=== PATIENT | male | born 1975 | race Hispanic/Latino ===

== ENCOUNTER 2019-04-18 03:11 | Emergency (ER) | payer SELFPAY ==
[~2019-04-18] VITALS: Ht 177.8 cm; Wt 90.0 kg
[2019-04-18] MEDS ORDERED: MAGNESIUM SULF 1GRAM/DEXTROSE 100 ML IV ONE ×2 (03:45)
[2019-04-18] MEDS ORDERED: METHYLPREDNISOLONE SOD SUCC 125 MG/2ML VIAL IV ONE (03:45)
[2019-04-18] MEDS ORDERED: ALBUTEROL/IPRATROPIUM 3 ML NEB NEB ONE ×2 (03:45)
[2019-04-18] MEDS ORDERED: ALBUTEROL/IPRATROPIUM 3 ML NEB ONE (03:45)
[2019-04-18] MEDS ORDERED: ALBUTEROL/IPRATROPIUM 3 ML NEB INH ONE (03:45)
[2019-04-18 03:53] LABS: BASOPHILS % 0.5 % (0.0-1.0); EOSINOPHILS # (AUTO) 0.8 (0.0-0.4); EOSINOPHILS % 9.6 % (0.0-6.0); HEMATOCRIT 43.4 % (38.2-49.6); HEMOGLOBIN 14.2 g/dL (14.0-18.0); LYMPHOCYTES # (AUTO) 3.7 (1.0-3.2); LYMPHOCYTES % 45.8 % (18.0-39.1); MEAN CORPUSCULAR HEMOGLOBIN 29.6 pg (28-32); MEAN CORPUSCULAR HGB CONC 32.7 g/dL (31-35); MEAN CORPUSCULAR VOLUME 90.6 fL (81-99); MONOCYTES # (AUTO) 0.8 (0.2-0.8); MONOCYTES % 10.3 % (4.4-11.3); NEUTROPHILS # (AUTO) 2.7 (2.1-6.9); NEUTROPHILS % 33.7 % (38.7-80.0); PLATELET COUNT 245 x10e3/uL (140-360); RED BLOOD COUNT 4.79 x10e6/uL (4.3-5.7); RED CELL DISTRIBUTION WIDTH 13.2 % (11.7-14.4)
[2019-04-18 04:20] LABS: ALANINE AMINOTRANSFERASE 48 IU/L (0-55); ALBUMIN 4.4 g/dL (3.5-5.0); ALBUMIN/GLOBULIN RATIO 1.6 (0.8-2.0); ALKALINE PHOSPHATASE 54 IU/L (40-150); ANION GAP 16.6 mmol/L (8-16); BLOOD UREA NITROGEN 16 mg/dL (7-26); BUN/CREATININE RATIO 18 (6-25); CALCIUM 8.9 mg/dL (8.4-10.2); CARBON DIOXIDE 24 mmol/L (22-29); CHLORIDE 107 mmol/L (98-107); CREATININE, SERUM 0.88 mg/dL (0.72-1.25); EST GLOMERULAR FILTRATION RATE > 60 ML/MIN (60-); GLUCOSE 100 mg/dL (74-118); POTASSIUM 3.6 mmol/L (3.5-5.1); SODIUM 144 mmol/L (136-145)
[2019-04-18] MEDS ORDERED: PREDNISONE20 MG PO (05:41)
[2019-04-18] MEDS ORDERED: ADVAIR HFA 115-12 GM INH (05:41)
[2019-04-18] MEDS ORDERED: PROAIR HFA INH8.5 GM INH (05:41)
[2019-04-18] MEDS ORDERED: BREO ELLIPTA 11 EACH INH (05:58)
[2019-04-18 06:23] VITALS: BP 127/76
--- NOTE | 2019-04-18 07:00 | Diagnostic Imaging Report ---
EXAMINATION: CHEST SINGLE (PORTABLE) INDICATION: Short of breath COMPARISON: None FINDINGS: AP view TUBES and LINES: None. LUNGS: Lungs are well inflated. Mild central bronchial wall thickening. No consolidations. Prominent central pulmonary vasculature. PLEURA: No pleural effusion or pneumothorax. HEART AND MEDIASTINUM: The cardiomediastinal silhouette is unremarkable. BONES AND SOFT TISSUES: No acute osseous lesion. Soft tissues are unremarkable. UPPER ABDOMEN: No free air under the diaphragm. IMPRESSION: Mild central bronchial wall thickening can be seen with bronchitis. Mild pulmonary vascular congestion. Signed by: Tejas Gregory DO on 04/18/2019 6:57 AM
== END 2019-04-18 06:18 | disposition home or self-care (01) ==
LOC: ER 03:11
DX: R06.00 Dyspnea, unspecified (principal); J45.42 Moderate persistent asthma with status asthmaticus
CPT/HCPCS: 36415; 71045; 80053; 85025; 99284; J3475

== ENCOUNTER 2021-03-04 22:38 | Emergency (ER) | payer SELFPAY ==
[~2021-03-04] VITALS: Ht 177.8 cm; Wt 97.1 kg
[~2021-03-04 22:38] MED LIST: ADVAIR HFA 115-12 GM INH; BREO ELLIPTA 11 EACH INH; PREDNISONE20 MG PO; PROAIR HFA INH8.5 GM INH
[2021-03-04] MEDS ORDERED: SODIUM CHLORIDE 0.9% 1000ML 1,000 ML IV STA (23:07)
[2021-03-04] MEDS ORDERED: ONDANSETRON HCL INJ 2MG/ML 2ML 2 MG/ML VIAL IV STA (23:07)
[2021-03-04] MEDS ORDERED: MORPHINE SULFATE INJ 4 MG/ML INJ 1ML ONE (23:10)
[2021-03-04] MEDS ORDERED: SODIUM CHLORIDE 0.9% 1000ML 1,000 ML ONE (23:11)
[2021-03-04] MEDS ORDERED: MORPHINE SULFATE INJ 2 MG/ML SYR ONE (23:11)
[2021-03-04] MEDS ORDERED: ONDANSETRON HCL INJ 2MG/ML 2ML 2 MG/ML VIAL ONE (23:11)
[2021-03-04] MEDS ORDERED: MORPHINE SULFATE INJ 4 MG/ML INJ 1ML IV ONE (23:15)
[2021-03-04 23:22] LABS: BASOPHILS % 0.4 % (0.0-1.0); EOSINOPHILS # (AUTO) 0.3 (0.0-0.4); HEMATOCRIT 40.5 % (38.2-49.6); HEMOGLOBIN 13.3 g/dL (14.0-18.0); LYMPHOCYTES # (AUTO) 3.5 (1.0-3.2); LYMPHOCYTES % 32.8 % (18.0-39.1); MEAN CORPUSCULAR HEMOGLOBIN 27.8 pg (28-32); MEAN CORPUSCULAR HGB CONC 32.8 g/dL (31-35); MEAN CORPUSCULAR VOLUME 84.7 fL (81-99); MONOCYTES # (AUTO) 0.7 (0.2-0.8); NEUTROPHILS # (AUTO) 5.9 (2.1-6.9); NEUTROPHILS % 56.3 % (38.7-80.0); PLATELET COUNT 325 x10e3/uL (140-360); RED BLOOD COUNT 4.78 x10e6/uL (4.3-5.7); RED CELL DISTRIBUTION WIDTH 14.3 % (11.7-14.4)
[2021-03-04 23:37] LABS: ALBUMIN 4.4 g/dL (3.5-5.0); ALBUMIN/GLOBULIN RATIO 1.4 (0.8-2.0); ANION GAP 17.7 mmol/L (8-16); CALCIUM 9.4 mg/dL (8.4-10.2); CREATININE, SERUM 1.23 mg/dL (0.72-1.25); POTASSIUM 3.7 mmol/L (3.5-5.1)
[2021-03-05] MEDS ORDERED: IOPAMIDOL 370 MG/ML 200 ML INFUS..BTL INJ ONE (00:43)
[2021-03-05] MEDS ORDERED: SODIUM CHLORIDE 0.9% 50ML 50 ML ONE (00:43)
[2021-03-05 01:18] LABS: AMPHETAMINES SCREEN,URINE NEGATIVE (NEGATIVE); BACTERIA,URINE FEW /HPF; BENZODIAZEPINES SCREEN,URINE NEGATIVE (NEGATIVE); CLARITY,URINE CLEAR (CLEAR); COLOR,URINE YELLOW (YELLOW); EPITHELIAL CELLS,URINE FEW /LPF; KETONES,URINE NEGATIVE (NEGATIVE); LEUKOCYTE ESTERASE ,URINE NEGATIVE (NEGATIVE); NITRITE,URINE NEGATIVE (NEGATIVE); PHENCYCLIDINE SCREEN,URINE NEGATIVE (NEGATIVE); PROTEIN,URINE DIPSTICK NEGATIVE (NEGATIVE); RBC,URINE 0-5 /HPF (0-5); URINE UROBILINOGEN 0.2 mg/dL (0.2 - 1); WBC,URINE (MAN) 0-5 /HPF (0-5)
[2021-03-05 01:33] LABS: CALCIUM OXALATE CRYSTALS,UR MANY (FEW); MUCUS,URINE MANY (RARE)
[2021-03-05] MEDS ORDERED: ZOFRAN4 MG SL (01:37)
[2021-03-05] MEDS ORDERED: PANTOPRAZOLE SO40 MG PO (01:37)
[2021-03-05 02:33] VITALS: BP 111/78
== END 2021-03-05 02:34 | disposition home or self-care (01) ==
LOC: ER 23:04
DX: R10.13 Epigastric pain (principal); K29.70 Gastritis, unspecified, without bleeding; K21.9 Gastro-esophageal reflux disease without esophagitis; R94.31 Abnormal electrocardiogram [ECG] [EKG]; J45.909 Unspecified asthma, uncomplicated
CPT/HCPCS: 36415; 71045; 74177; 80053; 80307; 81001; 82550; 82553; 83690; 84484; 85025; 93005; 99284; J2270 ×2; J2405; J7030; Q9967

== ENCOUNTER 2021-03-19 04:24 | Emergency (ER) | payer SELFPAY ==
[~2021-03-19] VITALS: Ht 177.8 cm; Wt 97.1 kg
[~2021-03-19 04:24] MED LIST changes: +PANTOPRAZOLE SO40 MG PO; +ZOFRAN4 MG SL
[2021-03-19] MEDS ORDERED: ONDANSETRON HCL INJ 2MG/ML 2ML 2 MG/ML VIAL IV STA (04:34)
[2021-03-19] MEDS ORDERED: SODIUM CHLORIDE 0.9% 1000ML 1,000 ML IV ONE (04:45)
[2021-03-19] MEDS ORDERED: DICYCLOMINE HCL 20 MG/2 ML VIAL IM ONE ×2 (04:45→04:50)
[2021-03-19] MEDS ORDERED: SODIUM CHLORIDE 0.9% 1000ML 1,000 ML ONE (04:50)
[2021-03-19 05:01] LABS: BASOPHILS # (AUTO) 0.1 (0.0-0.1); BASOPHILS % 0.4 % (0.0-1.0); EOSINOPHILS # (AUTO) 0.5 (0.0-0.4); EOSINOPHILS % 3.8 % (0.0-6.0); HEMATOCRIT 41.9 % (38.2-49.6); HEMOGLOBIN 13.2 g/dL (14.0-18.0); LYMPHOCYTES # (AUTO) 5.3 (1.0-3.2); MEAN CORPUSCULAR HEMOGLOBIN 26.7 pg (28-32); MEAN CORPUSCULAR HGB CONC 31.5 g/dL (31-35); MEAN CORPUSCULAR VOLUME 84.8 fL (81-99); MONOCYTES % 8.9 % (4.4-11.3); NEUTROPHILS # (AUTO) 4.9 (2.1-6.9); NEUTROPHILS % 41.6 % (38.7-80.0); PLATELET COUNT 302 x10e3/uL (140-360); RED BLOOD COUNT 4.94 x10e6/uL (4.3-5.7); RED CELL DISTRIBUTION WIDTH 14.3 % (11.7-14.4)
[2021-03-19] MEDS ORDERED: MORPHINE SULFATE INJ 4 MG/ML INJ 1ML IV ONE (05:15)
[2021-03-19 05:19] LABS: AMYLASE 122 U/L (25-125); LIPASE 99 U/L (8-78)
[2021-03-19 05:21] LABS: ALANINE AMINOTRANSFERASE 56 IU/L (0-55); ALBUMIN 4.4 g/dL (3.5-5.0); ALBUMIN/GLOBULIN RATIO 1.4 (0.8-2.0); ALKALINE PHOSPHATASE 58 IU/L (40-150); ANION GAP 13.9 mmol/L (8-16); BLOOD UREA NITROGEN 17 mg/dL (7-26); BUN/CREATININE RATIO 15 (6-25); CALCIUM 9.7 mg/dL (8.4-10.2); CARBON DIOXIDE 26 mmol/L (22-29); CHLORIDE 105 mmol/L (98-107); CREATINE KINASE 112 IU/L (30-200); CREATININE, SERUM 1.17 mg/dL (0.72-1.25); EST GLOMERULAR FILTRATION RATE 68 ML/MIN (60-); GLUCOSE 130 mg/dL (74-118); POTASSIUM 3.9 mmol/L (3.5-5.1); SODIUM 141 mmol/L (136-145)
[2021-03-19 06:27] LABS: CLARITY,URINE CLEAR (CLEAR); COLOR,URINE YELLOW (YELLOW); KETONES,URINE NEGATIVE (NEGATIVE); LEUKOCYTE ESTERASE ,URINE NEGATIVE (NEGATIVE); NITRITE,URINE NEGATIVE (NEGATIVE); PROTEIN,URINE DIPSTICK NEGATIVE (NEGATIVE); URINE UROBILINOGEN 0.2 mg/dL (0.2 - 1)
[2021-03-19 06:29] LABS: BACTERIA,URINE FEW /HPF; RBC,URINE 0-5 /HPF (0-5); WBC,URINE (MAN) 0-5 /HPF (0-5)
[2021-03-19] MEDS ORDERED: FENTANYL CITRATE/PF 100MCG/2 ML INJ IV ONE (06:30)
[2021-03-19] MEDS ORDERED: ONDANSETRON ODT4 MG PO (06:31)
[2021-03-19] MEDS ORDERED: DICYCLOMINE HCL10 MG PO (06:31)
[2021-03-19 06:52] VITALS: BP 105/75
[2021-03-19 09:07] LABS: EOSINOPHILS % (MANUAL) 2 % (0-7); LYMPHOCYTES % (MANUAL) 30 % (19-48); MONOCYTES % (MANUAL) 7 % (3.4-9.0); NEUTROPHILS % (MANUAL) 50 % (40-74)
[2021-03-19 09:08] LABS: PLATELET ESTIMATE ADEQUATE; PLATELET MORPHOLOGY COMMENT NORMAL; RBC MORPHOLOGY COMMENT NORMAL
== END 2021-03-19 06:57 | disposition home or self-care (01) ==
LOC: ER 04:36
DX: R10.11 Right upper quadrant pain (principal); K80.20 Calculus of gallbladder without cholecystitis without obstruction; R11.2 Nausea with vomiting, unspecified; J45.909 Unspecified asthma, uncomplicated
CPT/HCPCS: 36415; 76705; 80053; 81001; 82150; 82550; 82553; 83690; 84484; 85025; 93005; 99283; C9113; J0500; J2270; J2405; J3010; J7030

== ENCOUNTER 2022-10-27 19:28 | Emergency (ER) | payer SELFPAY ==
[~2022-10-27] VITALS: Ht 177.8 cm; Wt 97.1 kg
[~2022-10-27 19:28] MED LIST changes: +DICYCLOMINE HCL10 MG PO; +ONDANSETRON ODT4 MG PO
[2022-10-27] MEDS ORDERED: KETOROLAC TROMETHAMINE 30 MG/ML VIAL IV STA (19:33)
[2022-10-27] MEDS ORDERED: DICYCLOMINE HCL 20 MG/2 ML VIAL IM ONE (19:45)
[2022-10-27 19:50] LABS: BASOPHILS % 0.4 % (0.0-1.0); EOSINOPHILS # (AUTO) 0.4 (0.0-0.4); EOSINOPHILS % 3.5 % (0.0-6.0); HEMATOCRIT 37.3 % (38.2-49.6); HEMOGLOBIN 11.4 g/dL (14.0-18.0); LYMPHOCYTES # (AUTO) 4.7 (1.0-3.2); LYMPHOCYTES % 46.9 % (18.0-39.1); MEAN CORPUSCULAR HEMOGLOBIN 22.3 pg (28-32); MEAN CORPUSCULAR HGB CONC 30.6 g/dL (31-35); MONOCYTES # (AUTO) 0.9 (0.2-0.8); MONOCYTES % 8.7 % (4.4-11.3); NEUTROPHILS # (AUTO) 4.1 (2.1-6.9); NEUTROPHILS % 40.3 % (38.7-80.0); PLATELET COUNT 343 x10e3/uL (140-360); RED BLOOD COUNT 5.11 x10e6/uL (4.3-5.7); RED CELL DISTRIBUTION WIDTH 20.7 % (11.7-14.4)
[2022-10-27 20:09] LABS: ALBUMIN 3.9 g/dL (3.5-5.0); ALBUMIN/GLOBULIN RATIO 1.4 (0.8-2.0); ANION GAP 12.1 mmol/L (8-16); CALCIUM 8.7 mg/dL (8.4-10.2); CREATININE, SERUM 0.94 mg/dL (0.72-1.25); POTASSIUM 4.1 mmol/L (3.5-5.1)
[2022-10-27] MEDS ORDERED: DICYCLOMINE HCL20 MG PO (21:00)
[2022-10-27] MEDS ORDERED: PANTOPRAZOLE SO40 MG PO (21:00)
[2022-10-27] MEDS ORDERED: ONDANSETRON ODT4 MG PO (21:00)
== END 2022-10-27 21:07 | disposition home or self-care (01) ==
LOC: ER 19:30
DX: R10.11 Right upper quadrant pain (principal); K80.20 Calculus of gallbladder without cholecystitis without obstruction; J45.909 Unspecified asthma, uncomplicated
CPT/HCPCS: 36415; 80053; 83690; 85025; 99283; C9113; J0500; J1885